=== PATIENT | male | born 1990 | race African-American/Black ===

== ENCOUNTER 2023-10-18 05:46 | Emergency (ER) | payer MEDICAID, OTHER ==
[~2023-10-18] VITALS: Ht 175.3 cm; Wt 68.0 kg
[2023-10-18 06:00] VITALS: BP 111/70; PULSE 70; RESP 16; TEMP 97.5; O2SAT 99
== END 2023-10-18 07:48 | disposition home or self-care (01) ==
LOC: ER 05:46
DX: F12.90 Cannabis use, unspecified, uncomplicated (principal)
CPT/HCPCS: 82962; 93005; 99283